=== PATIENT | female | born 1990 | race Caucasian/White ===

== ENCOUNTER 2020-08-13 14:05 | Emergency (ER) | payer BC | END 2020-08-13 14:29 | disposition home or self-care (01) | LOC: JVIRT 14:05 | DX: U07.1 COVID-19 (principal) | CPT/HCPCS: C9803; G2251-GT; Q3014-GT; U0003 ==

== ENCOUNTER 2020-08-18 04:45 | Inpatient (IN) | payer BC ==
[2020-08-18] MEDS ORDERED: ELECTROLYTE-148 SOLN 500 ML IV ONE ×2 (06:00→07:00)
[2020-08-18 06:07] LABS: BASO % 0.3 % (0-2.0); HEMATOCRIT 36.9 % (32.4-45.2); LYMPH % 23.2 % (8-40); MCH 30.6 pg (25.7-33.7); MCHC 35.4 g/dl (32.0-36.0); MEAN CELL VOLUME 86.6 fl (80-96); MEAN PLT VOLUME 9.4 fl (7.5-11.1); MONO % 7.8 % (3.8-10.2); NEUT % 68.7 % (42.8-82.8); PLATELET COUNT 111 K/MM3 (134-434); RBC 4.26 M/mm3 (3.60-5.2); RDW 13.9 % (11.6-15.6); WHITE BLOOD COUNT 6.5 K/mm3 (4.0-10.0)
[2020-08-18 06:14] LABS: INR 0.91 (0.83-1.09); PROTHROMBIN TIME (PATIENT) 11.1 SEC (9.7-13.0)
[2020-08-18 06:17] LABS: ACTIVATED PTT 30.9 SECONDS (25.2-36.5)
[2020-08-18 06:36] LABS: POTASSIUM 3.7 mmol/L (3.5-5.1)
[2020-08-18 06:37] LABS: CALCIUM 8.7 mg/dL (8.5-10.1)
[2020-08-18 06:38] LABS: BLOOD UREA NITROGEN 7.6 mg/dL (7-18)
[2020-08-18 06:41] LABS: CREATININE 0.6 mg/dL (0.55-1.3)
[2020-08-18 07:13] VITALS: BMI 26.5
[2020-08-18] MEDS ORDERED: FENTANYL/BUPIVACAINE/NS/PF - PCEA - 50 ML DISP.SYRIN EP ONE ×2 (07:32→10:36)
[2020-08-18] MEDS ORDERED: PCA PUMP NR ONE (07:33)
[2020-08-18] MEDS ORDERED: OXYTOCIN 30 UNITS in 0.9% NS 30 UNIT/500 ML INFUS.BAG IVPB SCH (08:00)
[2020-08-18] MEDS ORDERED: FENTANYL/BUPIVACAINE/NS/PF - PCEA - 50 ML DISP.SYRIN EP SCH (08:30)
[2020-08-18] MEDS ORDERED: NALOXONE HCL 0.4 MG/ML VIAL IVPUSH PRN (08:30)
[2020-08-18] MEDS ORDERED: OXYTOCIN 30 UNITS in 0.9% NS 30 UNIT/500 ML INFUS.BAG IVPB ONE (09:27)
[2020-08-18] MEDS ORDERED: OXYTOCIN 20 UNITS in 0.9% NS 20 UNIT/1,000 ML INFUS.BAG IV ONE ×2 (11:36→18:36)
[2020-08-18] MEDS ORDERED: LIDOCAINE HCL 1% PRESERVATIVE FREE - 30ML VIAL ONE (11:36)
[2020-08-18 12:48] LABS: HIV INTERPRETATION NEGATIVE (NEGATIVE)
[2020-08-18] MEDS ORDERED: BISACODYL 10 MG SUPP.RECT RC PRN (14:54)
[2020-08-18] MEDS ORDERED: METHYLERGONOVINE MALEATE 0.2 MG/1 ML AMP IM PRN (14:54)
[2020-08-18] MEDS ORDERED: WITCH HAZEL 50% (TUCKS) 40 PAD/JAR PAD TP PRN (14:54)
[2020-08-18] MEDS ORDERED: BENZOCAINE 20% 57 GM BOTTLE TP PRN (14:54)
[2020-08-18] MEDS ORDERED: BENZOCAINE 28 GM HEMORRHOIDAL OINTMENT TP PRN (14:54)
[2020-08-18] MEDS: IBUPROFEN 600 MG TABLET (FP) PO PRN (16:03)
[2020-08-18] MEDS: ACETAMINOPHEN 325 MG TABLET (FP) PO PRN (16:04)
[2020-08-19] MEDS: ACETAMINOPHEN 325 MG TABLET (FP) PO PRN ×2 (06:30→21:46)
[2020-08-19] MEDS: IBUPROFEN 600 MG TABLET (FP) PO PRN ×2 (06:35→21:45)
[2020-08-19 09:30] LABS: EOS % 0.1 % (0-4.5); HEMATOCRIT 25.2 % (32.4-45.2); LYMPH % 17.4 % (8-40); MCHC 35.8 g/dl (32.0-36.0); MEAN CELL VOLUME 86.5 fl (80-96); MEAN PLT VOLUME 9.1 fl (7.5-11.1); MONO % 5.2 % (3.8-10.2); NEUT % 77.3 % (42.8-82.8); PLATELET COUNT 102 K/MM3 (134-434); RBC 2.91 M/mm3 (3.60-5.2); RDW 14.2 % (11.6-15.6); WHITE BLOOD COUNT 6.2 K/mm3 (4.0-10.0)
[2020-08-19] MEDS ORDERED: SENNOSIDES/DOCUSATE COMBO (SENNA PLUS) TABLET (UD) PO PRN (22:00)
[2020-08-19] MEDS: FENTANYL/BUPIVACAINE/NS/PF - PCEA - 50 ML DISP.SYRIN EP SCH (22:20)
[2020-08-20] MEDS: IBUPROFEN 600 MG TABLET (FP) PO PRN (09:01)
[2020-08-20] MEDS: ACETAMINOPHEN 325 MG TABLET (FP) PO PRN (09:01)
[2020-08-20 13:26] VITALS: BP 108/67; PULSE 77; TEMP 98
== END 2020-08-20 12:30 | disposition home or self-care (01) | DRG 807 ==
LOC: JLDR 04:45 → J3W 14:00
PROVIDERS: ADMIT Specialist; ATTEND Specialist
PROC: 10E0XZZ Delivery of Products of Conception, External Approach (ICD-10-PCS; principal; 2020-08-18)
PROC: 0W8NXZZ Division of Female Perineum, External Approach (ICD-10-PCS; 2020-08-18)
PROC: 10907ZC Drainage of Amniotic Fluid, Therapeutic from Products of Conception, Via Natural or Artificial Opening (ICD-10-PCS; 2020-08-18)
DX: O66.0 Obstructed labor due to shoulder dystocia (principal); Z37.0 Single live birth; Z3A.39 39 weeks gestation of pregnancy
CPT/HCPCS: 36415; 59409; 80048; 85025; 85461; 85610; 85730; 86780; 86850; 86870; 86900; 86901; 86902; 86999; 87389; C9803; U0003

== ENCOUNTER 2024-02-01 18:43 | Emergency (ER) | payer BC ==
[2024-02-01 18:49] VITALS: BP 101/69; PULSE 92; RESP 18; TEMP 97.7; BMI 24.3
[2024-02-01 19:48] LABS: HCG,QUALITATIVE URINE Negative
[2024-02-01 20:07] LABS: EPI CELLS 4 /uL (0-25.1); HYALINE CASTS 0 /uL (0-3.1); URINE APPEARANCE CLEAR; URINE BACTERIA 16 /uL (0-1359); URINE BILIRUBIN NEGATIVE (NEGATIVE); URINE COLOR YELLOW; URINE GLUCOSE (UA) NEGATIVE (NEGATIVE); URINE KETONE NEGATIVE (NEGATIVE); URINE LEUK ESTERASE NEGATIVE (NEGATIVE); URINE NITRITE NEGATIVE (NEGATIVE); URINE PROTEIN NEGATIVE (NEGATIVE); URINE UROBILINOGEN 0.2 mg/dL (0.2-1.0); URINE WBC 2 /uL (0-25.8)
[2024-02-01 20:43] LABS: URINE RBC 175.6 /uL (0-23.9)
[2024-02-01 20:44] LABS: YEAST NONE SEEN (NEGATIVE)
== END 2024-02-01 21:09 | disposition home or self-care (01) ==
LOC: JER 18:43
DX: N93.9 Abnormal uterine and vaginal bleeding, unspecified (principal); R10.2 Pelvic and perineal pain
CPT/HCPCS: 76830-TC; 81003; 84703; 87086; 99284-25